=== PATIENT | male | born 1955 | race American Indian/Alaskan Native ===

== ENCOUNTER 2018-01-31 08:04 | Outpatient (CLI) | payer BC ==
[2018-01-31] VITALS (10 sets, daily range): BP systolic 99–169; BP diastolic 49–92
[~2018-01-31] VITALS: Ht 177.8 cm; Wt 87.3 kg
[~2018-01-31 08:04] MED LIST: ASPI-611 PO; BIOT10004 PO; CARV3.122 PO; CHOL50004 PO; METF1000 PO; MOME17SP BOTHNARES; PANT-47 PO; SENN1TAB33 PO; SODI30SP3 BOTHNARES; VALS80TA2 PO; VITA1TAB37 PO; ZIN220C PO
[2018-01-31] MEDS ORDERED: regadenoson 0.4mg/5ml syringe IV ONE ×2 (08:45→09:47)
[2018-01-31] MEDS ORDERED: regadenoson 0.4mg/5ml syringe IV PRN (08:46)
[2018-01-31] MEDS ORDERED: metoprolol tartrate 1mg/ml inj IV PRN (08:50)
[2018-01-31] MEDS ORDERED: nitroGLYCERIN 0.4mg SUBLingual tab SL PRN (08:50)
[2018-01-31] MEDS ORDERED: aminophylline inj. 10 ML IV ONE (09:47)
== END 2018-01-31 23:59 | disposition home or self-care (01) ==
LOC: RAD 08:04
PROVIDERS: ATTEND Internal Medicine Cardiovascular Disease
DX: Z01.810 Encounter for preprocedural cardiovascular examination (principal); I10 Essential (primary) hypertension; I48.91 Unspecified atrial fibrillation; R55 Syncope and collapse; E11.9 Type 2 diabetes mellitus without complications; Z79.82 Long term (current) use of aspirin; Z96.651 Presence of right artificial knee joint; Z79.84 Long term (current) use of oral hypoglycemic drugs
CPT/HCPCS: 78452; A9500; J0280

== ENCOUNTER 2019-02-04 19:00 | Emergency (ER) | payer BC ==
[~2019-02-04] VITALS: Ht 177.8 cm; Wt 88.6 kg
[2019-02-04] MEDS ORDERED: ipratropium/albuterol 3ml nebule NEB ONE (19:25)
[2019-02-04] MEDS ORDERED: furosemide 40mg/4ml inj IV ONE (19:25)
[2019-02-04] MEDS ORDERED: methylPREDNISolone sod succ 125mg/2ml vial IV ONE (19:25)
[2019-02-04 19:36] LABS: BASOPHILS # (AUTO) 0.1 X10'3 (0-0.2); BASOPHILS % (AUTO) 0.8 % (0-1); EOSINOPHILS # (AUTO) 0.2 X10'3 (0-0.9); EOSINOPHILS % (AUTO) 2.7 % (0-6); HEMATOCRIT 44.9 % (42.0-52.0); HEMOGLOBIN 15.2 g/dl (14.0-17.9); LYMPHOCYTES # (AUTO) 1.8 X10'3 (1.1-4.8); LYMPHOCYTES % (AUTO) 19.9 % (21-51); MEAN CORPUSCULAR HGB CONC 33.9 g/dL (33.0-36.5); MEAN CORPUSCULAR VOLUME 85.5 FL (78-98); MEAN PLATELET VOLUME 8.7 FL (7.4-10.4); MONOCYTES # (AUTO) 0.8 X10'3 (0-0.9); MONOCYTES % (AUTO) 9.4 % (2-12); NEUTROPHILS # (AUTO) 6.1 X10'3 (1.8-7.7); NEUTROPHILS % (AUTO) 67.2 % (42-75); PLATELET COUNT 304 X10'3 (140-440); RED BLOOD COUNT 5.26 X10'6 (4.70-6.10)
[2019-02-04 19:44] LABS: ALANINE AMINOTRANSFERASE 29 U/L (12-78); ALBUMIN 3.8 G/DL (3.4-5.0); ALBUMIN/GLOBULIN RATIO 1.2 (1.1-1.5); ALKALINE PHOSPHATASE 64 IU/L (46-116); ANION GAP 7 (8-16); ASPARTATE AMINO TRANSFERASE 16 U/L (10-37); BILIRUBIN,TOTAL 0.5 MG/DL (0.1-1.0); BLOOD UREA NITROGEN 15 MG/DL (7-18); BUN/CREATININE RATIO 15.2 (5.4-32.0); CALCIUM 8.7 MG/DL (8.5-10.1); CHLORIDE 99 MMOL/L (99-107); CREATININE 0.99 MG/DL (0.60-1.10); GLUCOSE 279 MG/DL (70-104); POTASSIUM 4.7 MMOL/L (3.5-5.1); SODIUM 133 MMOL/L (135-145); TOTAL CARBON DIOXIDE 27.5 MMOL/L (24-32); TOTAL PROTEIN 7.1 G/DL (6.4-8.2); eGFR 76 ML/MIN
[2019-02-04] MEDS ORDERED: FURO-150 PO (20:25)
[2019-02-04 20:53] VITALS: BP 149/97
== END 2019-02-04 20:30 | disposition home or self-care (01) ==
LOC: ER 19:00
DX: R06.02 Shortness of breath (principal); E78.00 Pure hypercholesterolemia, unspecified; I50.9 Heart failure, unspecified; F12.90 Cannabis use, unspecified, uncomplicated; Z77.22 Contact with and (suspected) exposure to environmental tobacco smoke (acute) (chronic); Z88.6 Allergy status to analgesic agent; Z88.5 Allergy status to narcotic agent; Z88.1 Allergy status to other antibiotic agents; Z79.82 Long term (current) use of aspirin; Z79.899 Other long term (current) drug therapy
CPT/HCPCS: 36415; 71045; 80053; 83880; 84484; 85025; 93005; 94640; 96374; 96375; 99284; J1940; J2930; 94760

== ENCOUNTER 2019-03-12 01:45 | Emergency (ER) | payer BC ==
[~2019-03-12 01:45] MED LIST changes: -ZIN220C PO; +ZINC220C11 PO
[2019-03-12 02:26] VITALS: BP 140/87
[2019-03-12] MEDS ORDERED: LORA-268 PO (02:37)
[2019-03-12] MEDS ORDERED: LORazepam 0.5 MG tablet PO ONE (02:40)
== END 2019-03-12 02:53 | disposition home or self-care (01) ==
LOC: ER 01:47
DX: F41.9 Anxiety disorder, unspecified (principal); G47.00 Insomnia, unspecified; G47.30 Sleep apnea, unspecified; E78.00 Pure hypercholesterolemia, unspecified; F12.90 Cannabis use, unspecified, uncomplicated; Z98.890 Other specified postprocedural states; Z77.22 Contact with and (suspected) exposure to environmental tobacco smoke (acute) (chronic); Z88.6 Allergy status to analgesic agent; Z88.5 Allergy status to narcotic agent; Z88.1 Allergy status to other antibiotic agents; Z79.82 Long term (current) use of aspirin; Z79.84 Long term (current) use of oral hypoglycemic drugs; Z79.899 Other long term (current) drug therapy
CPT/HCPCS: 99284

== ENCOUNTER 2019-04-05 07:06 | Day surgery (SDC) | payer BC ==
[2019-04-04 15:24] LABS: BASOPHILS # (AUTO) 0.1 X10'3 (0-0.2); BASOPHILS % (AUTO) 0.6 % (0-1); EOSINOPHILS # (AUTO) 0.2 X10'3 (0-0.9); EOSINOPHILS % (AUTO) 1.9 % (0-6); HEMOGLOBIN 15.3 g/dl (14.0-17.9); LYMPHOCYTES # (AUTO) 1.9 X10'3 (1.1-4.8); LYMPHOCYTES % (AUTO) 17.4 % (21-51); MEAN CORPUSCULAR VOLUME 82.5 FL (78-98); MEAN PLATELET VOLUME 7.7 FL (7.4-10.4); MONOCYTES # (AUTO) 1.3 X10'3 (0-0.9); NEUTROPHILS # (AUTO) 7.3 X10'3 (1.8-7.7); NEUTROPHILS % (AUTO) 68.1 % (42-75); PLATELET COUNT 422 X10'3 (140-440); RED BLOOD COUNT 5.46 X10'6 (4.70-6.10); RED CELL DISTRIBUTION WIDTH 16.3 % (11.5-14.5); WHITE BLOOD COUNT 10.8 X10'3 (4.5-11.0)
[2019-04-04 15:37] LABS: ALBUMIN 3.8 G/DL (3.4-5.0); ANION GAP 9 (8-16); BLOOD UREA NITROGEN 10 MG/DL (7-18); BUN/CREATININE RATIO 10.4 (5.4-32.0); CALCIUM 9.1 MG/DL (8.5-10.1); CHLORIDE 99 MMOL/L (99-107); CREATININE 0.96 MG/DL (0.60-1.10); GLUCOSE 99 MG/DL (70-104); POTASSIUM 4.2 MMOL/L (3.5-5.1); SODIUM 139 MMOL/L (135-145); eGFR 79 ML/MIN
[~2019-04-05] VITALS: Ht 185.4 cm; Wt 87.2 kg
[2019-04-05] VITALS (14 sets, daily range): BP systolic 117–143; BP diastolic 59–99
[~2019-04-05 07:06] MED LIST changes: +LORA-268 PO
[2019-04-05] MEDS ORDERED: atropine 0.1mg/ml 10ml syringe IV ONE (07:25)
[2019-04-05] MEDS ORDERED: diphenhydrAMINE 25mg capsule PO ONE (07:25)
[2019-04-05] MEDS ORDERED: amiodarone in dextrose, iso-osm 150mg/100ml bag IV ONE (07:25)
[2019-04-05] MEDS ORDERED: MIDAZolam 5mg/ml 2ml vial IV ONE (07:25)
[2019-04-05] MEDS ORDERED: morphine 10mg/ml inj. IV ONE (07:25)
[2019-04-05] MEDS ORDERED: LORazepam 0.5 MG tablet PO ONE (07:25)
[2019-04-05] MEDS ORDERED: CARV-49 PO (07:45)
[2019-04-05] MEDS ORDERED: AMIO200T61 PO (07:47)
[2019-04-05] MEDS ORDERED: azelastine (07:50)
[2019-04-05] MEDS ORDERED: FEXO1TAB8 PO (07:58)
[2019-04-05] MEDS ORDERED: DEPO TESTOSTERONE INJ (07:58)
[2019-04-05] MEDS ORDERED: APIX5TAB3 PO (07:58)
[2019-04-05] MEDS ORDERED: POTA20TA19 PO (07:58)
[2019-04-05] MEDS ORDERED: LOSA25TA96 PO (07:58)
[2019-04-05] MEDS ORDERED: FURO-149 PO (07:58)
[2019-04-05] MEDS ORDERED: MAGN400C PO (07:58)
[2019-04-05] MEDS ORDERED: SITA50TA PO (07:58)
== END 2019-04-05 12:15 | disposition home or self-care (01) ==
LOC: SSTAY O 07:06
PROVIDERS: ATTEND Internal Medicine Cardiovascular Disease
DX: I48.0 Paroxysmal atrial fibrillation (principal); I10 Essential (primary) hypertension; E11.9 Type 2 diabetes mellitus without complications; I25.10 Atherosclerotic heart disease of native coronary artery without angina pectoris; G47.33 Obstructive sleep apnea (adult) (pediatric); Z79.899 Other long term (current) drug therapy; Z88.8 Allergy status to other drugs, medicaments and biological substances; Z88.1 Allergy status to other antibiotic agents
CPT/HCPCS: 36415; 80048; 85025; 85610; 92960; 93005; 94760; J0282; J0461; J2250; J2270; Q0163

== ENCOUNTER 2019-05-16 10:24 | Emergency (ER) | payer BC ==
[~2019-05-16] VITALS: Ht 180.3 cm; Wt 87.5 kg
[~2019-05-16 10:24] MED LIST changes: +AMIO200T61 PO; +APIX5TAB3 PO; -ASPI-611 PO; -BIOT10004 PO; +CARV-49 PO; -CARV3.122 PO; -CHOL50004 PO; +DEPO TESTOSTERONE INJ; +FEXO1TAB8 PO; +FURO-149 PO; +LOSA25TA96 PO; +MAGN400C PO; -MOME17SP BOTHNARES; +POTA20TA19 PO; +SITA50TA PO; -SODI30SP3 BOTHNARES; -VALS80TA2 PO; -ZINC220C11 PO; +azelastine
[2019-05-16 11:09] LABS: BASOPHILS # (AUTO) 0.1 X10'3 (0-0.2); BASOPHILS % (AUTO) 0.7 % (0-1); EOSINOPHILS # (AUTO) 0.1 X10'3 (0-0.9); EOSINOPHILS % (AUTO) 0.9 % (0-6); HEMATOCRIT 47.8 % (42.0-52.0); LYMPHOCYTES # (AUTO) 1.5 X10'3 (1.1-4.8); LYMPHOCYTES % (AUTO) 15.4 % (21-51); MEAN CORPUSCULAR HEMOGLOBIN 27.9 PG (27.0-31.0); MEAN CORPUSCULAR HGB CONC 33.6 g/dL (33.0-36.5); MEAN PLATELET VOLUME 7.6 FL (7.4-10.4); MONOCYTES % (AUTO) 9.8 % (2-12); NEUTROPHILS # (AUTO) 7.1 X10'3 (1.8-7.7); NEUTROPHILS % (AUTO) 73.2 % (42-75); PLATELET COUNT 325 X10'3 (140-440); RED BLOOD COUNT 5.76 X10'6 (4.70-6.10); WHITE BLOOD COUNT 9.7 X10'3 (4.5-11.0)
[2019-05-16 11:24] LABS: ALANINE AMINOTRANSFERASE 20 U/L (12-78); ALBUMIN 3.8 G/DL (3.4-5.0); ALKALINE PHOSPHATASE 54 IU/L (46-116); ANION GAP 5 (8-16); ASPARTATE AMINO TRANSFERASE 14 U/L (10-37); BILIRUBIN,TOTAL 0.4 MG/DL (0.1-1.0); BLOOD UREA NITROGEN 10 MG/DL (7-18); BUN/CREATININE RATIO 10.5 (5.4-32.0); CALCIUM 9.1 MG/DL (8.5-10.1); CHLORIDE 101 MMOL/L (99-107); CREATININE 0.95 MG/DL (0.60-1.10); GLUCOSE 177 MG/DL (70-104); SODIUM 136 MMOL/L (135-145); TOTAL CARBON DIOXIDE 29.9 MMOL/L (24-32); TOTAL PROTEIN 7.5 G/DL (6.4-8.2); eGFR 80 ML/MIN
[2019-05-16] MEDS ORDERED: iohexol 300mg/ml 100ml inj. ONE (13:02)
[2019-05-16 13:07] LABS: CLARITY,URINE CLEAR (Clear); COLOR,URINE YELLOW (Yellow); GLUCOSE, URINE NEGATIVE (Neg); KETONES,URINE NEGATIVE (Neg); LEUKOCYTE ESTERASE ,URINE NEGATIVE (Neg); NITRITES, URINE NEGATIVE (Neg); OCCULT BLOOD,URINE NEGATIVE (Neg); PROTEIN,URINE NEGATIVE (Neg); UROBILINOGEN,URINE 0.2 E.U/dL (0.2-1.0)
[2019-05-16 13:08] LABS: UA COLLECTION TYPE URINAL
[2019-05-16 14:44] VITALS: BP 155/91
[2019-05-17] MEDS ORDERED: MESSAGE TO NURSING PO NR (14:14)
== END 2019-05-16 14:55 | disposition home or self-care (01) ==
LOC: ER 10:24
DX: R42 Dizziness and giddiness (principal); R53.1 Weakness; R53.83 Other fatigue; E78.00 Pure hypercholesterolemia, unspecified; F12.90 Cannabis use, unspecified, uncomplicated; Z98.890 Other specified postprocedural states; Z77.22 Contact with and (suspected) exposure to environmental tobacco smoke (acute) (chronic); Z88.6 Allergy status to analgesic agent; Z88.1 Allergy status to other antibiotic agents; Z79.84 Long term (current) use of oral hypoglycemic drugs; Z79.899 Other long term (current) drug therapy
CPT/HCPCS: 36415; 71045; 71260; 80053; 81003; 84484; 85025; 93005; 99285; Q9967

== ENCOUNTER 2019-07-16 16:19 | Inpatient (IN) | payer BC ==
[~2019-07-16] VITALS: Ht 177.8 cm; Wt 89.1 kg
[2019-07-16 17:24] LABS: BASOPHILS # (AUTO) 0.1 X10'3 (0-0.2); EOSINOPHILS # (AUTO) 0.1 X10'3 (0-0.9); EOSINOPHILS % (AUTO) 1.3 % (0-6); HEMOGLOBIN 16.5 g/dl (14.0-17.9); LYMPHOCYTES # (AUTO) 1.6 X10'3 (1.1-4.8); MEAN CORPUSCULAR HEMOGLOBIN 28.9 PG (27.0-31.0); MEAN CORPUSCULAR HGB CONC 33.7 g/dL (33.0-36.5); MEAN CORPUSCULAR VOLUME 85.8 FL (78-98); MEAN PLATELET VOLUME 8.2 FL (7.4-10.4); MONOCYTES # (AUTO) 0.9 X10'3 (0-0.9); NEUTROPHILS # (AUTO) 6.6 X10'3 (1.8-7.7); NEUTROPHILS % (AUTO) 70.7 % (42-75); PLATELET COUNT 270 X10'3 (140-440); RED CELL DISTRIBUTION WIDTH 17.2 % (11.5-14.5); WHITE BLOOD COUNT 9.4 X10'3 (4.5-11.0)
[2019-07-16 17:36] LABS: ALANINE AMINOTRANSFERASE 14 U/L (12-78); ALBUMIN 3.7 G/DL (3.4-5.0); ALBUMIN/GLOBULIN RATIO 1.1 (1.1-1.5); ALKALINE PHOSPHATASE 56 IU/L (46-116); ANION GAP 8 (8-16); ASPARTATE AMINO TRANSFERASE 9 U/L (10-37); BILIRUBIN,TOTAL 0.3 MG/DL (0.1-1.0); BLOOD UREA NITROGEN 13 MG/DL (7-18); BUN/CREATININE RATIO 12.3 (5.4-32.0); CALCIUM 9.5 MG/DL (8.5-10.1); CHLORIDE 100 MMOL/L (99-107); CREATININE 1.06 MG/DL (0.60-1.10); GLUCOSE 177 MG/DL (70-104); POTASSIUM 4.2 MMOL/L (3.5-5.1); SODIUM 137 MMOL/L (135-145); TOTAL CARBON DIOXIDE 28.7 MMOL/L (24-32); TOTAL PROTEIN 7.1 G/DL (6.4-8.2); eGFR 70 ML/MIN
[2019-07-16 19:38] LABS: MAGNESIUM 1.7 MG/DL (1.5-2.4)
[2019-07-16] MEDS ORDERED: ondansetron/PF 4mg/2ml inj IV PRN (19:55)
[2019-07-16] MEDS ORDERED: magnesium hydroxide 30ml (MOM) UD suspension PO PRN (19:55)
[2019-07-16] MEDS ORDERED: magnesium 4gm in 100ml NS 100 ML IV PRN (19:55)
[2019-07-16] MEDS ORDERED: magnesium Cl slow-release 64mg tablet PO PRN (19:55)
[2019-07-16] MEDS ORDERED: magnesium 2GM in 50ml NS 50 ML IV PRN (19:55)
[2019-07-16] MEDS ORDERED: potassium CL 10mEq/100ml bag 100 ML IV PRN ×2 (19:55)
[2019-07-16] MEDS ORDERED: potassium Cl 20 mEq SR tablet PO PRN ×2 (19:55)
[2019-07-16] MEDS ORDERED: mag hydrox/Alum hydrox/simeth 30ml oral suspension PO PRN (19:55)
[2019-07-16] MEDS: K and/or MAG REPLACEMENT MC SCH (20:00)
--- NOTE | 2019-07-16 20:00 | NUR ---
, ADRIANE, CAN BE REACHED [phone] . 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
[2019-07-16] MEDS ORDERED: TEST200V10 SUBCUT (21:00)
[2019-07-16] MEDS ORDERED: AZEL137S4 NAS (21:00)
[2019-07-16] MEDS ORDERED: glucagon, human recombinant 1mg kit SUBCUT PRN (21:15)
[2019-07-16] MEDS ORDERED: insulin Lispro (HumaLOG) vial - multi-dose SQ SCH (21:15)
[2019-07-16] MEDS ORDERED: MESSAGE TO PHARMACY PO ONE (21:15)
[2019-07-16] MEDS ORDERED: dextrose ORAL solution 15 GM/59 ML bottle PO PRN ×2 (21:15)
[2019-07-16] MEDS ORDERED: apixaban 5mg tablet PO ONE (21:15)
[2019-07-16] MEDS ORDERED: dextrose 50%-water 50ml dispensing syringe IV PRN ×2 (21:15)
[2019-07-16] MEDS ORDERED: amiodarone 200mg tablet PO ONE (21:15)
[2019-07-16] MEDS ORDERED: hydrALAZINE 20mg/ml inj. IV PRN (21:20)
[2019-07-16 21:30] VITALS: BP 202/112
[2019-07-16] MEDS: carVEDilol 3.125mg tablet PO ONE ×2 (22:03→22:25)
[2019-07-16] MEDS: docusate sod 100mg capsule PO SCH (22:19)
[2019-07-17] VITALS (7 sets, daily range): BP systolic 101–165; BP diastolic 65–99
[2019-07-17 06:11] LABS: BASOPHILS % (AUTO) 0.4 % (0-1); EOSINOPHILS # (AUTO) 0.1 X10'3 (0-0.9); EOSINOPHILS % (AUTO) 1.4 % (0-6); HEMATOCRIT 46.9 % (42.0-52.0); HEMOGLOBIN 15.9 g/dl (14.0-17.9); LYMPHOCYTES # (AUTO) 2.2 X10'3 (1.1-4.8); LYMPHOCYTES % (AUTO) 25.3 % (21-51); MEAN CORPUSCULAR HEMOGLOBIN 29.5 PG (27.0-31.0); MEAN CORPUSCULAR VOLUME 86.8 FL (78-98); MEAN PLATELET VOLUME 8.5 FL (7.4-10.4); MONOCYTES % (AUTO) 11.4 % (2-12); NEUTROPHILS # (AUTO) 5.4 X10'3 (1.8-7.7); NEUTROPHILS % (AUTO) 61.5 % (42-75); PLATELET COUNT 241 X10'3 (140-440); RED CELL DISTRIBUTION WIDTH 16.6 % (11.5-14.5); WHITE BLOOD COUNT 8.7 X10'3 (4.5-11.0)
[2019-07-17 06:20] LABS: ALANINE AMINOTRANSFERASE 14 U/L (12-78); ALBUMIN 3.3 G/DL (3.4-5.0); ALBUMIN/GLOBULIN RATIO 0.9 (1.1-1.5); ALKALINE PHOSPHATASE 48 IU/L (46-116); ANION GAP 6 (8-16); ASPARTATE AMINO TRANSFERASE 18 U/L (10-37); BILIRUBIN,TOTAL 0.4 MG/DL (0.1-1.0); BLOOD UREA NITROGEN 14 MG/DL (7-18); BUN/CREATININE RATIO 14.7 (5.4-32.0); CALCIUM 9.1 MG/DL (8.5-10.1); CHLORIDE 104 MMOL/L (99-107); CREATININE 0.95 MG/DL (0.60-1.10); GLUCOSE 129 MG/DL (70-104); SODIUM 140 MMOL/L (135-145); TOTAL CARBON DIOXIDE 30.5 MMOL/L (24-32); eGFR 80 ML/MIN
[2019-07-17 06:23] LABS: MAGNESIUM 1.9 MG/DL (1.5-2.4)
[2019-07-17 06:28] LABS: POTASSIUM 4.1 MMOL/L (3.5-5.1)
--- NOTE | 2019-07-17 06:33 | NUR ---
Patient in room PCU 3026. I have received report from Amy BRANCH and had the opportunity to ask questions and assume patient care.
[2019-07-17] MEDS: K and/or MAG REPLACEMENT MC SCH ×4 (08:00→19:37)
--- NOTE | 2019-07-17 08:04 | NUR ---
Paged Kaden Savage. [phone]. Patients home meds need reviewed. Patient came in late last night. TY. Gumaro [phone]
[2019-07-17] MEDS: docusate sod 100mg capsule PO SCH ×2 (08:05→19:46)
[2019-07-17] MEDS ORDERED: potassium Cl 20 mEq SR tablet PO STA (10:12)
[2019-07-17] MEDS ORDERED: magnesium 2GM in 50ml NS 50 ML IV ONE (10:15)
[2019-07-17] MEDS ORDERED: potassium CL 10mEq/100ml bag 100 ML IV PRN (10:15)
[2019-07-17] MEDS ORDERED: potassium Cl 20 mEq SR tablet PO PRN ×2 (10:15)
[2019-07-17] MEDS: carVEDilol 12.5mg tablet PO SCH ×2 (10:56→19:46)
--- NOTE | 2019-07-17 11:53 | NUR ---
Paged Kaden Savage. [phone]. [facility] patient home meds are ready to be reviewed. TY. Gumaro [phone]
--- NOTE | 2019-07-17 15:37 | NUR ---
DM consult: Pt with T2DM, current A1c 7.0%. Pt seen at bedside, denies questions about DM management at this time. Pt provided with written DM education with referral to outpatient CDE course and RD contact information. Pt endorses a good appetite which is evident with documented 100% PO intake. Pt agrees to double protein TID for satiety, d/w dietary. Pt denies food allergies, difficulty chewing/swallowing, or constipation/diarrhea. [facility] 07/15. Will continue to follow. Addendum: 07/17/19 at [address] Amended: Links added.
[2019-07-17] MEDS: magnesium oxide 400mg tablet PO SCH (15:55)
--- NOTE | 2019-07-17 18:06 | NUR ---
Problems reprioritized. Patient report given, questions answered & plan of care reviewed with Ana BRANCH.
[2019-07-17] MEDS: amiodarone 200mg tablet PO SCH (18:43)
[2019-07-17] MEDS: apixaban 5mg tablet PO SCH (18:43)
--- NOTE | 2019-07-17 18:54 | NUR ---
PT6 REFUSED AMIO AND ELIQUIS TONIGHT HEW WANTS CLARIFICATION FROM [facility] FIRST. HE WAS TAKEN OFF THESE AND DOES NOT WANT TO BE ON THEM AGAIN. STATED THE MAZE PROCEDURE WAS SO HE COULD BE OFF THE ELIQIS.
[2019-07-17] MEDS ORDERED: traMADol 50MG tablet PO PRN (19:05)
[2019-07-17] MEDS ORDERED: acetaminophen 325mg tablet PO PRN (19:10)
[2019-07-17] MEDS ORDERED: carvedilol 6.25mg tablet PO SCH (20:00)
[2019-07-17] MEDS: loratadine/pseudoephedrine TAB.SR.12Hour PO SCH (20:01)
[2019-07-17] MEDS ORDERED: insulin glargine (Lantus) pen - multi-dose SQ SCH (21:00)
[2019-07-18 02:41] VITALS: BP 137/52
[2019-07-18 05:29] LABS: BASOPHILS % (AUTO) 0.5 % (0-1); EOSINOPHILS # (AUTO) 0.1 X10'3 (0-0.9); LYMPHOCYTES # (AUTO) 1.9 X10'3 (1.1-4.8); MEAN CORPUSCULAR VOLUME 86.4 FL (78-98); MEAN PLATELET VOLUME 8.3 FL (7.4-10.4); MONOCYTES # (AUTO) 0.9 X10'3 (0-0.9); WHITE BLOOD COUNT 9.7 X10'3 (4.5-11.0)
[2019-07-18 05:30] LABS: EOSINOPHILS % (AUTO) 1.3 % (0-6); HEMATOCRIT 50.9 % (42.0-52.0); HEMOGLOBIN 17.3 g/dl (14.0-17.9); LYMPHOCYTES % (AUTO) 19.9 % (21-51); MEAN CORPUSCULAR HEMOGLOBIN 29.4 PG (27.0-31.0); MONOCYTES % (AUTO) 9.7 % (2-12); NEUTROPHILS # (AUTO) 6.7 X10'3 (1.8-7.7); NEUTROPHILS % (AUTO) 68.6 % (42-75); PLATELET COUNT 240 X10'3 (140-440); RED BLOOD COUNT 5.89 X10'6 (4.70-6.10); RED CELL DISTRIBUTION WIDTH 16.3 % (11.5-14.5)
[2019-07-18 06:05] LABS: ALANINE AMINOTRANSFERASE 18 U/L (12-78); ALBUMIN 3.6 G/DL (3.4-5.0); ALBUMIN/GLOBULIN RATIO 1.1 (1.1-1.5); ALKALINE PHOSPHATASE 53 IU/L (46-116); ANION GAP 3 (8-16); ASPARTATE AMINO TRANSFERASE 10 U/L (10-37); BILIRUBIN,TOTAL 0.4 MG/DL (0.1-1.0); BLOOD UREA NITROGEN 15 MG/DL (7-18); BUN/CREATININE RATIO 16.5 (5.4-32.0); CALCIUM 9.1 MG/DL (8.5-10.1); CHLORIDE 103 MMOL/L (99-107); CHOL/HDL RATIO 4.3 (0.00-4.99); CHOLESTEROL 196 MG/DL (0-200); CREATININE 0.91 MG/DL (0.60-1.10); GLUCOSE 161 MG/DL (70-104); HDL CHOLESTEROL 46 MG/DL (35-60); LDL CHOLESTEROL 141 MG/DL (50-100); MAGNESIUM 2.1 MG/DL (1.5-2.4); POTASSIUM 4.2 MMOL/L (3.5-5.1); SODIUM 137 MMOL/L (135-145); TOTAL PROTEIN 6.9 G/DL (6.4-8.2); TRIGLYCERIDES 100 MG/DL (20-135); eGFR 84 ML/MIN
--- NOTE | 2019-07-18 06:11 | NUR ---
Problems reprioritized. Patient report given, questions answered & plan of care reviewed with Gumaro BRANCH.
--- NOTE | 2019-07-18 06:13 | NUR ---
Patient in room PCU 3026. I have received report from Ana BRANCH and had the opportunity to ask questions and assume patient care.
[2019-07-18 07:00] VITALS: BP 152/79
[2019-07-18] MEDS: amiodarone 200mg tablet PO SCH (07:53)
[2019-07-18] MEDS: docusate sod 100mg capsule PO SCH (07:58)
[2019-07-18] MEDS: apixaban 5mg tablet PO SCH (07:58)
[2019-07-18] MEDS: magnesium oxide 400mg tablet PO SCH (07:58)
[2019-07-18] MEDS: carVEDilol 12.5mg tablet PO SCH (07:58)
[2019-07-18] MEDS: K and/or MAG REPLACEMENT MC SCH ×2 (08:00)
[2019-07-18] MEDS ORDERED: furosemide 40mg tablet PO SCH (08:00)
[2019-07-18] MEDS ORDERED: losartan 25mg tablet PO SCH (08:00)
[2019-07-18] MEDS ORDERED: linagliptin 5mg tablet PO SCH (08:00)
[2019-07-18] MEDS ORDERED: vitamin B comp w/Vit. C tab 1 TAB TABLET PO SCH (08:00)
[2019-07-18] MEDS ORDERED: pantoprazole 40mg Tablet.DR PO SCH (08:00)
[2019-07-18] MEDS: loratadine/pseudoephedrine TAB.SR.12Hour PO SCH (08:03)
[2019-07-18] MEDS ORDERED: carVEDilol 12.5mg tablet PO ONE (09:35)
[2019-07-18] MEDS ORDERED: CARV-50 PO (10:15)
[2019-07-18 11:00] VITALS: BP 128/78
--- NOTE | 2019-07-18 12:04 | NUR ---
Patient safe for discharge per MD orders, discharge instructions reviewed, questions answered, prescriptions called in, belongings collected, wheeled to lobby, picked up by in private vehicle.
[2019-07-18] MEDS ORDERED: ATOR20TA66 PO (16:15)
[2019-07-18] MEDS ORDERED: carVEDilol 12.5mg tablet PO SCH (20:00)
== END 2019-07-18 11:55 | disposition home or self-care (01) | DRG 315 ==
LOC: ER 16:19 → ED HOLD 19:52 → PCU 3S 21:05
PROVIDERS: ADMIT Family Medicine; ATTEND Family Medicine
DX: R00.8 Other abnormalities of heart beat (principal); I50.32 Chronic diastolic (congestive) heart failure; I48.92 Unspecified atrial flutter; I48.91 Unspecified atrial fibrillation; E11.9 Type 2 diabetes mellitus without complications; E78.00 Pure hypercholesterolemia, unspecified; F12.90 Cannabis use, unspecified, uncomplicated; I11.0 Hypertensive heart disease with heart failure; K21.9 Gastro-esophageal reflux disease without esophagitis; M19.90 Unspecified osteoarthritis, unspecified site; K76.0 Fatty (change of) liver, not elsewhere classified; E78.5 Hyperlipidemia, unspecified; I25.10 Atherosclerotic heart disease of native coronary artery without angina pectoris; Z77.22 Contact with and (suspected) exposure to environmental tobacco smoke (acute) (chronic); I49.3 Ventricular premature depolarization; Z88.5 Allergy status to narcotic agent; Z79.899 Other long term (current) drug therapy; Z83.3 Family history of diabetes mellitus; Z82.49 Family history of ischemic heart disease and other diseases of the circulatory system
CPT/HCPCS: 36415; 71045; 80053; 80061; 82948; 83036; 83735; 83880; 84443; 84484; 85025; 87081; 93005; 93306; 99285; G0378; J0360; J1815; J3475

== ENCOUNTER 2021-09-23 09:05 | Day surgery (SDC) | payer MEDICARE, BC ==
[~2021-09-23] VITALS: Ht 177.8 cm; Wt 90.9 kg
[~2021-09-23 09:05] MED LIST changes: -AMIO200T61 PO; -APIX5TAB3 PO; +ATOR20TA66 PO; +AZEL137S4 NAS; -CARV-49 PO; +CARV-50 PO; -DEPO TESTOSTERONE INJ; -LORA-268 PO; +POTA-208 PO; -POTA20TA19 PO; +TEST200V33 SUBCUT; -azelastine
[2021-09-23 09:15] VITALS: BP 158/87
[2021-09-23] MEDS ORDERED: CARV-50 PO (09:22)
[2021-09-23] MEDS ORDERED: MIDAZolam 1 MG/ML 5ML VIAL ONE (09:28)
[2021-09-23] MEDS ORDERED: ALFU10TA10 PO (09:28)
[2021-09-23] MEDS ORDERED: fentaNYL/PF 50MCG/1 ML 2ML syringe ONE (09:28)
[2021-09-23] MEDS ORDERED: LIDOcaine Viscous 15ml cup ONE (09:28)
[2021-09-23] MEDS ORDERED: AMLO2.5T2 PO (09:29)
[2021-09-23] MEDS ORDERED: TADA5TAB2 PO (09:31)
[2021-09-23] MEDS ORDERED: DULA3PEN (09:31)
[2021-09-23] MEDS ORDERED: BIOT10004 PO (09:32)
[2021-09-23] MEDS ORDERED: LORA-983 PO (09:32)
[2021-09-23] MEDS ORDERED: MILK175C5 (09:33)
[2021-09-23] MEDS ORDERED: CHOL500049 PO (09:35)
[2021-09-23] MEDS ORDERED: ZINC50TA67 PO (09:37)
[2021-09-23] MEDS ORDERED: RED1000P PO (09:37)
[2021-09-23] MEDS ORDERED: OMEG1CAP13 PO (09:38)
[2021-09-23 10:10] VITALS: BP 148/86
[2021-09-23 10:20] VITALS: BP 137/82
[2021-09-23 10:30] VITALS: BP 123/76
[2021-09-23 10:40] VITALS: BP 128/75
== END 2021-09-23 10:45 | disposition home or self-care (01) ==
LOC: GI LAB 09:05
PROVIDERS: ATTEND Internal Medicine Gastroenterology
DX: R13.10 Dysphagia, unspecified (principal); K22.89 Other specified disease of esophagus; K20.90 Esophagitis, unspecified without bleeding; Z79.899 Other long term (current) drug therapy
CPT/HCPCS: 43239; 43450; J2250; J3010; J7030; Z7512; 88305; 99152; A4620